=== PATIENT | male | born 1955 | race Caucasian/White ===

== ENCOUNTER → 2020-11-18 | Outpatient (CLI) | payer BC, OTHER ==
[~2020-11-18] MED LIST: AMIODARONE HCL400 MG PO; ASPIRIN325 PO; EFFIENT10 MG PO; ELIQUIS5 MG PO; ENTRESTO 97 MG1 EACH PO; LASIX 40 MG TAB40 MG PO; LEVOTHROID150 MCG PO; LOPRESSOR 50 MG50 M1 PO; LOPRESSOR25 PO; LOSARTAN POTAS100 MG PO; NITROGLYCERIN0.3 MG SUBLING; SIMVASTATIN40 MG PO
[2020-11-18 10:37] LABS: HEMATOCRIT 46.9 % (42.0-52.0); HEMOGLOBIN 15.7 gm/dL (14.0-18.0); MCH 32.4 pg (26.0-34.0); MCHC 33.5 g/dL (28.0-37.0); MCV 96.5 fL (80.0-100.0); RBC 4.86 mil/uL (4.50-6.00); WBC 5.8 thou/uL (4.0-11.0)
[2020-11-18 10:50] LABS: ALBUMIN 3.2 g/dL (3.4-5.0); CALCIUM 8.2 mg/dL (8.5-10.1); CREATININE 2.3 mg/dL (0.7-1.3); POTASSIUM 4.2 mmol/L (3.5-5.1); TOTAL BILIRUBIN 0.4 mg/dL (0.2-1.0); TOTAL PROTEIN 7.3 g/dL (6.4-8.2)
== END ==
LOC: CAT 09:45
PROVIDERS: ATTEND Internal Medicine Cardiovascular Disease
DX: I48.91 Unspecified atrial fibrillation (principal)

== ENCOUNTER 2020-11-19 06:19 | Observation (INO) | payer BC, OTHER ==
[~2020-11-19] VITALS: Ht 167.6 cm; Wt 129.4 kg
[2020-11-19] VITALS (10 sets, daily range): BP systolic 164–178; BP diastolic 76–82
--- NOTE | ~2020-11-19 | P ---
[facility] [place] [address] PROCEDURE REPORT Name: CHUY CARRASQUILLO Room #: 211-P [facility] Francesca#: [id number] Admission: 11/19/20 Attend Phys: Jean Paul Ulrich MD Discharge: Date of : 53 Report #: [id number] THIS REPORT FOR: cc: Ericka Cornelius MD, Rachel L. MD Couchonnal, Luis F. MD ~ DATE OF SERVICE: 11/19/2020 PREOPERATIVE DIAGNOSES: 1. Atrial fibrillation. 2. Atrial flutter. POSTOPERATIVE DIAGNOSES: 1. Atrial fibrillation. 2. Atrial flutter. PROCEDURES PERFORMED: 1. Atrial fibrillation ablation -- CPT code 34450. 2. 3D mapping, CPT code 52733. 3. Intracardiac echocardiography, CPT code 14733. 4. Second pathway ablation -- CPT code 77888. 5. Arterial line placement, CPT code 45996. HISTORY: The patient is a 65-year-old with a history of coronary artery disease, assess multiple coronary interventions as well as ischemic cardiomyopathy, most recent EF of 55-60% in 06/2020, who has a history of recurrent paroxysmal atrial fibrillation and cavotricuspid isthmus-dependent flutter. He is here for ablation. ANESTHESIA: The patient underwent general anesthesia with no anesthesia-related complications. Anesthesia was unable to place an art line; therefore, I performed this. DESCRIPTION OF PROCEDURE: The patient was brought to the EP laboratory in fasting and sedated state, prepped and draped in a standard fashion. I obtained access to the right femoral vein x3, placing an 8, 9, and 7-Vietnamese short sheath, and in the right femoral artery, I placed a 5-Vietnamese short sheath for arterial blood pressure monitoring. Next, under fluoroscopy, a decapolar catheter was placed into the coronary sinus and ICE catheter was placed in the right atrium. Of note, his heart was rotated likely due to his obesity, made transseptal somewhat challenging, but on the 2nd path, I was able to cross with my SL1 sheath and [place] needle. The wire was advanced into the left inferior pulmonary vein and this SL1 was advanced into the left atrium and then, I exchanged for the cryosheath. Next, the Lasso catheter was placed into the left atrium and a 3D voltage map and geometry of the left atrium was created using the Lasso. Next, the patient was systemically heparinized prior to transseptal. [facility] [address] [place] [address] PROCEDURE REPORT Name: CHUY CARRASQUILLO Room #: 211-P [facility] M.R.#: [id number] Admission: 11/19/20 Attend Phys: Jean Paul Ulrich MD Discharge: Date of : 53 Report #: [id number] Next, using the cryoablation balloon, we started by isolating the left inferior pulmonary vein. The first freeze resulted in a delay, but not isolation and this freeze was of 3 minutes duration. A 2nd freeze was performed at 300 seconds duration and the vein isolated at 130 milliseconds. I then went to the left superior pulmonary vein and there appeared to already be delay into this vein, likely due to the fact that the left superior and left inferior pulmonary veins had a very close geovanny. This vein underwent a 4-minute freeze and isolated at 17 seconds. The right superior pulmonary vein underwent a 3-minute freeze isolating at 26 seconds and the right inferior pulmonary vein underwent a 4-minute freeze and isolated at 70 seconds. There was never any phrenic nerve compromise. Atrial flutter ablation given his history of recurrent atrial flutter. The patient was prepped for atrial flutter ablation. I used an 8 mm ablation catheter via a ramp sheath. Preablation, the trans-isthmus conduction time was 40 milliseconds. Post-ablation, it was 145 milliseconds. Ablation was performed at 70 astorga and 60 degrees and a continuous drag line was performed. Of note, there was very minimal electrograms along the isthmus. Post-ablation, the patient was in sinus rhythm, sinus cycle length of 1295 milliseconds, NM interval 200 milliseconds, QRS duration 107 milliseconds, QT interval 560 milliseconds, AH interval 144 milliseconds, and HV interval 54 milliseconds.. Post-ablation, there was no pericardial effusion. The patient received systemic protamine, and once ACT was within acceptable range, all catheters and sheaths were pulled. Hemostasis was obtained. CONCLUSION: 1. Successful AFib ablation with isolation of the pulmonary veins. 2. Successful atrial flutter ablation with bidirectional block. By: [id number] Jean Paul Ulrich MD /nt
[~2020-11-19 06:19] MED LIST changes: -AMIODARONE HCL400 MG PO; -ELIQUIS5 MG PO; -ENTRESTO 97 MG1 EACH PO; -LASIX 40 MG TAB40 MG PO
[2020-11-19] MEDS ORDERED: ELIQUIS5 MG PO (08:12)
[2020-11-19] MEDS ORDERED: AMIODARONE HCL400 MG PO (08:12)
[2020-11-19] MEDS ORDERED: LASIX 40 MG TAB40 MG PO (08:13)
[2020-11-19] MEDS ORDERED: ENTRESTO 97 MG1 EACH PO (08:16)
[2020-11-20 00:17] VITALS: BP 147/66
[2020-11-20 04:18] VITALS: BP 163/74
--- NOTE | 2020-11-20 04:37 | NUR ---
ASSUMED PT CARE AT 1900, PT IS AWAKE, ALERT AND ORIENTEDX4, SR/SB ON TELE, DENIES CP OR SOB, BLOOD NOTED TO THE RIGHT GROIN CATH SITE, DRESSING CHANGED, PT EDUCATED ON REMAINING BEDREST ALL NIGHT STATED UNDERSTANDING, NO FURTHER BLEEDING, GROIN SITE BRUISING NOTED, NO HEMATOMA, BP ELEVATED IN THE 170S SYST[address] DR HIDALGO NOTIFIED, ORDERS RECEIVED AND IMPLEMENTED, BP DOWN TO 150S SYSYTOLIC, NO NEEDS WILL CONTINUE TO MONITOR, PLAN FOR DC TODAY
[2020-11-20 07:30] VITALS: BP 171/73
--- NOTE | 2020-11-20 11:48 | NUR ---
DISCONTINUE IV AND TELE. PT UNDERSTANDS ALL FOLLOW UP ORDERS. RIGHT GROIN CDI WITH NO HEMATOMA.
[2020-11-20 11:49] VITALS: BP 171/73
[2020-11-20 12:19] VITALS: BP 151/71
== END 2020-11-20 12:30 | disposition home or self-care (01) ==
LOC: CATH → 2N 07:41 → CATH 09:20 → 2N 11-20 12:30
PROVIDERS: ADMIT Internal Medicine Cardiovascular Disease; ATTEND Internal Medicine Cardiovascular Disease
DX: I48.91 Unspecified atrial fibrillation (principal); I48.92 Unspecified atrial flutter; Z20.822 Contact with and (suspected) exposure to COVID-19; I12.9 Hypertensive chronic kidney disease with stage 1 through stage 4 chronic kidney disease, or unspecified chronic kidney disease; I50.9 Heart failure, unspecified; N18.9 Chronic kidney disease, unspecified; I25.10 Atherosclerotic heart disease of native coronary artery without angina pectoris; E78.5 Hyperlipidemia, unspecified; I42.9 Cardiomyopathy, unspecified; I65.29 Occlusion and stenosis of unspecified carotid artery; Z68.41 Body mass index [BMI] 40.0-44.9, adult; Z79.82 Long term (current) use of aspirin; Z79.899 Other long term (current) drug therapy
CPT/HCPCS: 62110; 62900; 65020; 70005